=== PATIENT | female | born 1970 | race African-American/Black ===

== ENCOUNTER 2024-04-29 20:26 | Emergency (ER) | payer SELFPAY ==
[~2024-04-29] VITALS: Ht 175.3 cm; Wt 91.0 kg
[2024-04-29 20:30] VITALS: O2SAT 98
[2024-04-29] MEDS: SODIUM CHLORIDE 0.9% 1,000 ML IV ONE (20:55)
[2024-04-29 21:01] LABS: BASOPHILS % 0.6 % (0.0-2.0); EOSINOPHILS % 1.8 % (0.0-5.0); HEMATOCRIT. 46.2 % (36.0-48.0); HEMOGLOBIN. 15.4 g/dL (12.0-16.0); LYMPHOCYTES % 39.5 % (20.0-50.0); MEAN CORPUSCULAR HEMOGLOBIN 27.6 pg (28.0-32.0); MEAN CORPUSCULAR HGB CONC 33.3 g/dL (31.0-37.0); MEAN PLATELET VOLUME 9.9 fl (7.4-10.4); MONOCYTES % 8.2 % (2.0-8.0); NEUTROPHILS % 49.9 % (40.0-76.0); PLATELET 125 x1000/uL (130-400); RED BLOOD CELL COUNT 5.56 mill/uL (4.2-5.4); RED CELL DISTRIBUTION WIDTH 15.1 % (11.6-14.6); WHITE BLOOD COUNT 5.3 x1000/uL (4.5-11.0)
[2024-04-29 21:12] LABS: CHLORIDE 105 mEq/L (98-107); POTASSIUM 3.6 mEq/L (3.5-5.1); SODIUM 138 mEq/L (136-145)
[2024-04-29 21:13] LABS: CARBON DIOXIDE 27 mEq/L (21-32)
[2024-04-29 21:14] LABS: CALCIUM 9.2 mg/dL (8.7-10.4)
[2024-04-29 21:18] LABS: CREATININE 1.2 mg/dL (0.6-1.0); GLUCOSE 117 mg/dL (70-105); UREA NITROGEN BLOOD 14 mg/dL (9-23)
[2024-04-29 21:19] LABS: TROPONIN I HIGH SENSITIVITY 13 ng/L (3.0-34)
[2024-04-29] MEDS: KETOROLAC 30MG/ML VIAL IM ONE (23:28)
[2024-04-29] MEDS: HYDROCODONE/ACETAMINOPHEN 7.5/325MG TABLET PO ONE (23:29)
[2024-04-30 00:38] VITALS: BP 127/86; PULSE 65; RESP 18; TEMP 37.00296; O2SAT 98
== END 2024-04-30 00:42 | disposition home or self-care (01) ==
LOC: ER 20:26
DX: S89.91XA Unspecified injury of right lower leg, initial encounter (principal); I95.9 Hypotension, unspecified; I10 Essential (primary) hypertension; W18.39XA Other fall on same level, initial encounter; Y93.89 Activity, other specified; Y92.89 Other specified places as the place of occurrence of the external cause; Y99.8 Other external cause status
CPT/HCPCS: 80048; 85025; 84484; 36415; 73560; 96360; 96372; 99284; J1885; Z7610 ×2; J7030; L1830